=== PATIENT | male | born 1975 | race Caucasian/White ===

== ENCOUNTER → 2018-12-08 14:16 | Emergency (ER) | payer OTHER ==
--- NOTE | 2018-12-08 16:55 | ED ---
GI/ HPI - HPI Summary HPI Summary: This pt is a 43 y/o male presenting to [facility] c/o right flank pain for the past couple of days. Pt notes he has been urinating a lot recently. He reports recent weight loss and feeling itchy all over his upper body. Denies fever, hematuria, diarrhea, vomiting, chest pain, SOB, scrotal pain. He states he has hx of DM but has not received treatment for this due to not having insurance. - History of Current Complaint Chief Complaint: EDFlankPain Time Seen by Provider: 12/08/18 16:27 Stated Complaint: BACK PAIN, ITCHING PER PT Hx Obtained From: Patient Onset/Duration: Started Days Ago, Still Present Timing: Lasting Days Current Severity: Mild Pain Intensity: 1 Location of Pain: Flank - right Associated Signs and Symptoms: Positive: Weight Loss, UTI Symptoms - urinary frequency. Negative: Nausea, Vomiting, Diarrhea, Fever, Chest Pain Aggravating Factor(s): Nothing Alleviating Factor(s): Nothing - Allergy/Home Medications Allergies/Adverse Reactions: Allergies Allergy/AdvReac Type Severity Reaction Status Date / Time No Known Allergies Allergy Verified 12/08/18 14:42 PMH/Surg Hx/FS Hx/Imm Hx Endocrine/Hematology History: Reports: Hx Diabetes Cardiovascular History: Denies: Hx Hypertension Infectious Disease History: No Infectious Disease History: Denies: Traveled Outside the [place] in Last 30 Days - Family History Known Family History: Negative: Cardiac Disease - Social History Alcohol Use: None Substance Use Type: Reports: None Smoking Status (MU): Light Every Day Tobacco Smoker Review of Systems Constitutional: Other - POS: weight loss Negative: Fever Negative: Chest Pain Negative: Shortness Of Breath Negative: Vomiting, Diarrhea Positive: frequency, flank pain - right. Negative: hematuria, pain All Other Systems Reviewed And Are Negative: Yes Physical Exam - Summary Physical Exam Summary: Appearance: Well appearing, no pain distress Skin: warm, dry, reflects adequate perfusion Head/face: normal Eyes: EOMI, LIBBY ENT: normal Neck: supple, non-tender Respiratory: CTA, breath sounds present Cardiovascular: RRR, pulses symmetrical Abdomen: tenderness in the right flank, soft Musculoskeletal: normal, strength/ROM intact Neuro: normal, sensory motor intact, A&Ox3 Triage Information Reviewed: Yes Vital Signs On Initial Exam: Initial Vitals Temp Pulse Resp BP Pulse Ox 98.2 F 103 18 162/91 100 03/28/19 14:40 12/08/18 14:40 12/08/18 14:40 12/08/18 14:40 12/08/18 14:40 Vital Signs Reviewed: Yes Diagnostics - Vital Signs Vital Signs Temp Pulse Resp BP Pulse Ox 12/08/18 14:40 98.2 F 103 18 162/91 100 - Laboratory Result Diagrams: 12/08/18 18:16 12/08/18 18:16 Lab Statement: Any lab studies that have been ordered have been reviewed, and results considered in the medical decision making process. - CT Abdomen/pelvis CT CT Interpretation Completed By: Radiologist Summary of CT Findings: IMPRESSION: Fatty infiltration of the liver. No hydronephrosis or nephrolithiasis. Normal appendix. Dr. Carrizales has reviewed this report. GIGU Course/Dx - Course Assessment/Plan: Pt is a 43 y/o male, with hx of DM without treatment, c/o right flank pain for the past couple of days. Pt notes he has been urinating a lot recently. He reports recent weight loss and feeling itchy all over. Blood work, urinalysis, and CT obtained. Glucose is 245. UA shows 3+ glucose. Abdomen/pelvis CT shows fatty infiltration of the liver. No hydronephrosis or nephrolithiasis. Normal appendix. Pt will be discharged home with follow up from a PCP. He was given referral to establish a PCP. He was instructed to return to the ED for any new or worsening symptoms. - Diagnoses Differential Diagnoses - Male: Cholelithiasis, Colitis, Renal Colic, Urinary Tract Infection Provider Diagnoses: Hyperglycemia Discharge - Sign-Out/Discharge Documenting (check all that apply): Patient Departure - Discharge home Patient Received Moderate/Deep Sedation with Procedure: No - Discharge Plan Condition: Stable Disposition: HOME Prescriptions: metFORMIN* [Glucophage 850 MG TAB *] 850 mg PO 0800,1200,1700 #30 tab Patient Education Materials: Diabetic Hyperglycemia (ED) Referrals: [facility] [Outside] [facility] [Outside] Additional Instructions: Please follow up with your primary care provider in 3 days. If you don't have one please establish one through the [facility] Physician Referral. You can also follow up with [facility] to be seen sooner. RETURN TO THE ED FOR ANY NEW OR WORSENING SYMPTOMS - Billing Disposition and Condition Condition: STABLE Disposition: Home - Attestation Statements Document Initiated by Geraldibstefan: Yes Documenting Scribe: Cassandra Dubose Provider For Whom Scribe is Documenting (Include Credential): Titus Carrizales MD Scribe Attestation: Cassandra Ibarra, scribed for Titus Carrizales MD on 12/08/18 at 1935. Scribe Documentation Reviewed: Yes Provider Attestation: The documentation as recorded by the Cassandra haddad accurately reflects the service I personally performed and the decisions made by me, Titus Carrizales MD Status of Scribe Document: Viewed
[2018-12-08 17:05] LABS: Urine Appearance Clear; Urine Bilirubin Negative (Negative); Urine Blood Negative (Negative); Urine Color Yellow; Urine Glucose 2+(150 mg/dL) (Negative); Urine Ketones 1+ (Negative); Urine Nitrite Negative (Negative); Urine Protein Negative (Negative); Urine Specific Gravity 1.028 (1.010-1.030); Urine Urobilinogen Negative (Negative)
[2018-12-08 18:42] LABS: Activated Partial Thrombo Time 27.7 seconds (26.0-36.3); INR 0.98 (0.77-1.02)
[2018-12-08 18:43] LABS: ABS Basophils 0 10^3/ul (0-0.2); ABS Eosinophils 0 10^3/ul (0-0.6); ABS Lymphocytes 1.4 10^3/ul (1.0-4.8); ABS Monocytes 0.5 10^3/ul (0-0.8); ABS Neutrophils 7.9 10^3/ul (1.5-7.7); ABS Nucleated RBC 0 10^3/ul; Eosinophil % 0.3 %; Hematocrit 45 % (36-46); Hemoglobin 15.6 g/dL (14.0-18.0); Lymphocyte % 13.9 %; Mean Corpuscular HGB Conc 35 g/dL (31-36); Mean Corpuscular Hemoglobin 32 pg (27-31); Mean Corpuscular Volume 91 fL (80-94); Mean Platelet Volume 8.5 fL (7.4-10.4); Nucleated Red Blood Cells % 0.1; Platelet Count 161 10^3/uL (150-450); Red Blood Count 4.94 10^6 /uL (4.18-5.48); Red Cell Distribution Width 13 % (10.5-15); White Blood Count 9.8 10^3/uL (3.5-10.8)
[2018-12-08 18:52] LABS: Albumin 4.5 g/dL (3.2-5.2); BUN/Creatinine Ratio 12.2 (8-20); Calcium 9.2 mg/dL (8.6-10.3); EGFR Non-African American 92.5 (>60); Globulin 2.2 g/dL (2-4); Potassium 3.9 mmol/L (3.5-5.0); Total Bilirubin 0.8 mg/dL (0.2-1.0); Total Protein 6.7 g/dL (6.4-8.9)
[2018-12-08 19:21] VITALS: BP 135/89
== END | disposition home or self-care (01) ==
LOC: MERGE 14:16 → ED 14:16
DX: E11.65 Type 2 diabetes mellitus with hyperglycemia (principal); K76.0 Fatty (change of) liver, not elsewhere classified; E85.4 Organ-limited amyloidosis; K77 Liver disorders in diseases classified elsewhere
CPT/HCPCS: 36415; 74176; 80053; 81003; 83690; 84484; 85025; 85610; 85730; 99282